=== PATIENT | male | born 1985 | race Two or more races ===

== ENCOUNTER 2020-07-18 12:16 | Emergency (ER) | payer BC ==
[~2020-07-18] VITALS: Ht 188 cm; Wt 148.0 kg
[2020-07-18] MEDS ORDERED: IBUPROFEN 600MG TABLET PO ONE (13:00)
[2020-07-18 15:09] VITALS: BP 128/55
== END 2020-07-18 15:15 | disposition home or self-care (01) ==
LOC: ER 12:16
DX: Z03.818 Encounter for observation for suspected exposure to other biological agents ruled out (principal); R51.9 Headache, unspecified; R05 Cough; R53.1 Weakness
CPT/HCPCS: 71045; 87635; 93005; 99285

== ENCOUNTER 2021-05-11 21:30 | Emergency (ER) | payer BC ==
[~2021-05-11] VITALS: Ht 188 cm; Wt 143.1 kg
[2021-05-11] MEDS ORDERED: IBUP-1523 MT (23:17)
[2021-05-11] MEDS ORDERED: ACETAMINOPHEN 325MG TABLET PO ONE (23:30)
[2021-05-11 23:54] VITALS: BP 130/80
== END 2021-05-12 | disposition home or self-care (01) ==
LOC: ER 22:14
DX: U07.1 COVID-19 (principal)
CPT/HCPCS: 99283; C9803; U0003; U0005